=== PATIENT | female | born 1970 | race Caucasian/White ===

== ENCOUNTER 2019-01-21 07:16 | Day surgery (SDC) | payer MEDICAID ==
[~2019-01-21 07:16] MED LIST: Bupivacaine 0.5% 50 ML MDV ONE; Isosulfan Blue 5 ML SDV ONE; Lidocaine 1% with EPINEPHrine 1:100,000 50 ML MDV ONE; Sodium Chloride 0.9% 1,000 ML IV SCH; ceFAZolin 2 GM in Sodium Chloride 0.9% 50 ML IV ONE
[2019-01-21] MEDS ORDERED: fentaNYL 100 MCG/2 ML SDV ONE (07:47)
[2019-01-21] MEDS ORDERED: Midazolam 1 MG/ML 2 ML SDV ONE (07:47)
[2019-01-21] MEDS ORDERED: Propofol 200 MG/20 ML SDV ONE ×3 (07:47→08:52)
[2019-01-21] MEDS ORDERED: ceFAZolin 2 GM in Sodium Chloride 0.9% 50 ML IV ONE (08:45)
[2019-01-21] MEDS ORDERED: Sodium Chloride 0.9% 1,000 ML IV SCH (08:50)
[2019-01-21] MEDS ORDERED: ceFAZolin 2 GM in Premix Bag 1 BAG IV ONE (08:50)
[2019-01-21] MEDS ORDERED: fentaNYL 100 MCG/2 ML SDV IVPUSH ONE (09:23)
--- NOTE | 2019-01-21 10:24 | OR ---
DATE OF PROCEDURE: 01/21/2019 SURGEON: Aki Tello MD PROCEDURE: Excision of right breast carcinoma. COMPLICATION: None. 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 PATHOLOGY: Right breast excision. Single white stitch superior. Double white stitch anterior. Single black stitch medial. Double black stitch inferior. INDICATIONS: A 48-year-old female with positive margins upon lumpectomy requiring re- excision. RISKS: Risks, benefits, alternatives, and limitations including, but not limited to, infection, bleeding, seroma, hematoma, requirement for reexcision for additional margins were explained, patient wished to proceed. PROCEDURE IN DETAIL: The patient was placed in supine position. The previous curvilinear incision was reopened. This was carried down with electrocautery to the cavity. Because the margins were medial and closed on the inferior margin, this would be the center of the excision. Essentially, this is an excision of a curved structure and this was commenced by using PlasmaBlade excising the entire margin. As the specimen was removed, the orientation was kept correctly and the aforementioned stitches were placed as described. This was kept in anatomical orientation and with the idea that this was a curved lesion removal. This was then thoroughly irrigated. Bleeding was controlled with electrocautery. The specimen was left open for 2 minutes and no other bleeding was noted. The wound was then closed with 3-0 Vicryl in 2 layers and 4-0 Vicryl in a running fashion and Dermabond was applied. The patient tolerated the procedure well. Aki Tello MD /[id number]
== END 2019-01-21 10:45 | disposition home or self-care (01) ==
LOC: JP.SDS 07:16
PROVIDERS: ATTEND Surgery
DX: N60.11 Diffuse cystic mastopathy of right breast (principal); F17.210 Nicotine dependence, cigarettes, uncomplicated
CPT/HCPCS: 19301; 36415; 81025; 86850; 86900; 86901; J0690; J2250; J2704; J3010; J3490; J7030; J7050; Q9968

== ENCOUNTER 2019-02-18 07:37 | Day surgery (SDC) | payer MEDICAID ==
[~2019-02-18 07:37] MED LIST changes: -Isosulfan Blue 5 ML SDV ONE; -Sodium Chloride 0.9% 1,000 ML IV SCH; -ceFAZolin 2 GM in Sodium Chloride 0.9% 50 ML IV ONE
[2019-02-18] MEDS ORDERED: Midazolam 1 MG/ML 2 ML SDV ONE (08:21)
[2019-02-18] MEDS ORDERED: Propofol 200 MG/20 ML SDV ONE (08:21)
[2019-02-18] MEDS ORDERED: fentaNYL 100 MCG/2 ML SDV ONE (08:21)
[2019-02-18] MEDS ORDERED: Sodium Chloride 0.9% 1,000 ML IV SCH (08:30)
[2019-02-18] MEDS ORDERED: ceFAZolin 2 GM in Premix Bag 1 BAG IV ONE (09:00)
--- NOTE | 2019-02-18 14:47 | CRLCR ---
INDICATION: Breast carcinoma ;Post insertion of Port-A-Cath. TECHNIQUE: Portable AP chest. FINDINGS: Port-A-Cath identified with the tip in the superior vena cava. No pneumothorax or pleural effusion. IMPRESSION: Port-A-Cath in the superior vena cava. Dictated by Michela Denny MD @ Feb 18 2019 2:44PM Signed by Dr. Michela Denny @ Feb 18 2019 2:45PM
--- NOTE | 2019-02-19 11:50 | OR ---
DATE OF PROCEDURE: 02/18/2019 SURGEON: Aki Tello MD PREOPERATIVE DIAGNOSIS: Breast cancer. POSTOPERATIVE DIAGNOSIS: Breast cancer. PROCEDURE: Port-A-Cath placement, left subclavian vein. COMPLICATIONS: None. 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 ANESTHESIA: MAC/local. RISKS: Risks, benefits, alternatives, and limitations including, but not limited to infection, bleeding, and pneumothorax were explained to the patient, who wished to proceed. PROCEDURE IN DETAIL: The patient was placed in supine position. The left subclavian vein was accessed on the first pass using a micropuncture needle kit. This was then exchanged for the sheath, then exchanged for a 35,000th wire. Under fluoroscopic guidance, this was advanced to and across the midline. The pocket was then created by anesthetizing with lidocaine. Subclavian vein was slightly lateral. This pocket was then created. Tubing was then created. This tubing was then placed in left subclavian vein in the superior vena cava. This was then cut and secured to the reservoir with a black ring properly oriented. The port was then sutured into place using 3 sutures. The wound was then closed with 3-0 Vicryl and 4-0 Vicryl interrupted in running fashion. Dermabond was applied. The patient tolerated the procedure well. Aki Tello MD /[id number]
== END 2019-02-18 10:40 | disposition home or self-care (01) ==
LOC: JP.SDS 07:37
PROVIDERS: ATTEND Surgery
DX: C50.919 Malignant neoplasm of unspecified site of unspecified female breast (principal); K90.0 Celiac disease; J45.909 Unspecified asthma, uncomplicated; F17.200 Nicotine dependence, unspecified, uncomplicated
CPT/HCPCS: 36561; 71045; 81025; C1788; C1894; J0690; J1642; J2250; J2704; J3010; J3490; J7030

== ENCOUNTER 2019-03-12 16:05 | Emergency (ER) | payer MEDICAID ==
[2019-03-12] MEDS ORDERED: Ondansetron 4 MG/2 ML SDV IVPUSH ONE ×2 (17:31→19:14)
[2019-03-12] MEDS ORDERED: HYDROmorphone 0.5 MG/0.5 ML Syringe IVPUSH ONE (17:31)
--- NOTE | 2019-03-12 17:38 | EDM.PDOC ---
<Edelmira Degroot - Last Filed: 03/12/19 17:33> ED HPI GENERAL MEDICAL PROBLEM - General Chief Complaint: Abdominal Pain Stated Complaint: ABDOMINAL/BOWEL PAIN Time Seen by Provider: 03/12/19 17:33 Source of Information: Reports: Patient History Limitations: Reports: No Limitations - History of Present Illness INITIAL COMMENTS - FREE TEXT/NARRATIVE: pt arrived wit a history of profuse diarrhea that started in the nite. She has had over 20 stools since it started. The stool is looking very bloody. Onset: Other ( started in the nite. ) Duration: Hour(s): Location: Reports: Abdomen, Generalized Associated Symptoms: Reports: Nausea/Vomiting, Other ( diarrhea. ) Anterior Abdomen Pain Score (Numeric/FACES): 10 - Related Data Allergies Allergy/AdvReac Type Severity Reaction Status Date / Time atorvastatin Allergy Other Verified 02/18/19 07:49 gabapentin Allergy Other Verified 02/18/19 07:49 pregabalin [From Lyrica] Allergy Swelling Verified 02/18/19 07:49 tramadol Allergy Other Verified 02/18/19 07:49 varenicline Allergy Other Verified 02/18/19 07:49 codeine AdvReac Nausea and Verified 02/18/19 07:49 Vomiting Home Meds: Home Meds Albuterol Sulfate [Albuterol Sulfate Hfa] 2 puff INH Q4H PRN 11/25/18 [History] Ammonium Lactate [Lac-Hydrin 12% Crm] 1 applic TOP BID 11/25/18 [History] Chlorzoxazone 500 mg PO TID PRN 11/25/18 [History] Cyanocobalamin (Vitamin B12) [Vitamin B12] 500 mcg PO BID 11/25/18 [History] Escitalopram Oxalate 10 mg PO DAILY 11/25/18 [History] Fluticasone Propionate [Flonase] 2 spray NASBOTH DAILY 11/25/18 [History] Steffanie Root [Steffanie] 250 mg PO TID 11/25/18 [History] Ibuprofen 800 mg PO TID 11/25/18 [History] Lactobacillus Acidophilus [Probiotic] 1 tab PO DAILY 11/25/18 [History] Levothyroxine 200 mcg PO DAILY 11/25/18 [History] Magnesium Oxide 400 mg PO DAILY 11/25/18 [History] [place]-3/DHA/Epa/Fish Oil [[place] 3 500 Softgel] 1 tab PO DAILY 11/25/18 [History] Rizatriptan [Maxalt VALET ATTENDANT] 5 mg PO ASDIRECTED 11/25/18 [History] oxyCODONE [Oxycodone HCl] 10 mg PO .FIVE TIMES DAILY 11/25/18 [History] QUEtiapine [SEROquel] 50 mg PO BEDTIME 12/19/18 [History] cloNIDine HCl [Catapres] 0.1 mg PO DAILY 12/19/18 [History] Cbd Vape 1 inh INH TID PRN 01/21/19 [History] Cetirizine HCl 10 mg PO DAILY 02/17/19 [History] Lidocaine/Prilocaine [EMLA Crm] 1 applic TOP ASDIRECTED PRN 02/17/19 [History] Prochlorperazine [Compazine] 10 mg PO Q6H PRN 02/17/19 [History] Past Medical History HEENT History: Reports: Allergic Rhinitis, Glaucoma, Impaired Vision Other HEENT History: wears glasses Respiratory History: Reports: Asthma Gastrointestinal History: Reports: Celiac Disease Genitourinary History: Reports: Other (See Below) Other Genitourinary History: prolapse bladder 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: Musculoskeletal History: Reports: Arthritis, Back Pain, Chronic, Fibromyalgia Neurological History: Reports: Migraines, Neuropathy, Peripheral Psychiatric History: Reports: Anxiety, Depression, Panic Attack Endocrine/Metabolic History: Reports: Hypothyroidism Oncologic (Cancer) History: Reports: Breast Dermatologic History: Reports: Psoriasis - Infectious Disease History Infectious Disease History: Reports: Chicken Pox - Past Surgical History HEENT Surgical History: Reports: Oral Surgery Respiratory Surgical History: Reports: None GI Surgical History: Reports: EGD Female Surgical History: Reports: Breast Biopsy, Other (See Below) Other Female Surgeries/Procedures: right breast lumpectomy Endocrine Surgical History: Reports: None Neurological Surgical History: Reports: Sacral Spine Musculoskeletal Surgical History: Reports: None Oncologic Surgical History: Reports: Lumpectomy Dermatological Surgical History: Reports: None Social & Family History - Family History Family Medical History: Noncontributory Respiratory: Reports: Other (See Below) Other Respiratory Family Hisory: lung polyps? Musculoskeletal: Reports: Back pain, Chronic Neurological: Reports: CVA, Migraines Psychiatric: Reports: Anxiety, OCD - Tobacco Use Smoking Status *Q: Former Smoker Used Tobacco, but Quit: Yes Month/Year Tobacco Last Used: 2019 - Caffeine Use Caffeine Use: Reports: Coffee Caffeine Use Comment: 10 cups, monster x1 - Recreational Drug Use Recreational Drug Use: No ED ROS GENERAL - Review of Systems Review Of Systems: See Below Constitutional: Reports: Weakness, Decreased Appetite HEENT: Reports: No Symptoms Respiratory: Reports: No Symptoms Cardiovascular: Reports: No Symptoms Endocrine: Reports: No Symptoms GI/Abdominal: Reports: Abdominal Pain, Bloody Stool, Diarrhea, Nausea, Vomiting : Reports: No Symptoms Musculoskeletal: Reports: No Symptoms Skin: Reports: No Symptoms Neurological: Reports: No Symptoms Psychiatric: Reports: Agitation ED EXAM, GI/ABD - Physical Exam Exam: See Below Text/Narrative:: pt arrived with a history of breast CA. 1 week ago she received her first round of chemo, She was doing ok until in the nuite she developed profuse diarrhea. She has had over 20 loose stools. The stool that she just had was vey bloody in nature. Exam Limited By: No Limitations General Appearance: Alert, Anxious, Moderate Distress, Other ( she is having diffuse crampy of her abdoman. ) Ears: Normal TMs Nose: Normal Inspection Throat/Mouth: Normal Inspection Head: Atraumatic Neck: Normal Inspection Respiratory/Chest: No Respiratory Distress Cardiovascular: Regular Rate, Rhythm, Tachycardia GI/Abdominal Exam: Other (pt has diffuse tenders. Pt has had a recent lumpectomy / ) (Female) Exam: Deferred Rectal (Female) Exam: Deferred Back Exam: Normal Inspection Extremities: Normal Inspection Neurological: Alert, Oriented, Normal Cognition Course - Vital Signs Last Recorded V/S: Last Vital Signs Temp 96.7 F 03/12/19 16:47 Pulse 93 03/12/19 18:03 Resp 12 03/12/19 18:03 BP 111/67 03/12/19 18:03 Pulse Ox 94 L 03/12/19 18:03 - Orders/Labs/Meds Orders: Active Orders 24 hr Category Date Time Status CULTURE STOOL + SHIGATOX [RM] Stat Lab 03/12/19 17:35 Received UA W/MICROSCOPIC [URIN] Urgent Lab 03/12/19 19:04 Ordered Sodium Chloride 0.9% [Normal Saline] 1,000 ml Med 03/12/19 17:45 Active IV ASDIRECTED Sodium Chloride 0.9% [Normal Saline] 1,000 ml Med 03/12/19 17:45 Active IV ASDIRECTED Medication Orders Sodium Chloride (Normal Saline) 1,000 mls @ 999 mls/hr IV ASDIRECTED KEIRA Last Admin: 03/12/19 17:59 Dose: 999 mls/hr Sodium Chloride (Normal Saline) 1,000 mls @ 999 mls/hr IV ASDIRECTED KEIRA Labs: Laboratory Tests 03/12/19 03/12/19 Range/Units 17:27 17:27 WBC 7.1 (4.5-11.0) K/uL RBC 5.05 (3.30-5.50) M/uL Hgb 15.5 H (12.0-15.0) g/dL Hct 45.2 (36.0-48.0) % MCV 90 (80-98) fL MCH 31 (27-31) pg MCHC 34 (32-36) % Plt Count 78 L (150-400) K/uL Add Manual Diff Yes Neutrophils % (Manual) 82 H (36-66) % Band Neutrophils % 5 (5-11) % Lymphocytes % (Manual) 9 L (24-44) % Monocytes % (Manual) 2 (2-6) % Eosinophils % (Manual) 2 (2-4) % Sodium 134 L (140-148) mmol/L Potassium 3.5 L (3.6-5.2) mmol/L Chloride 95 L (100-108) mmol/L Carbon Dioxide 24 (21-32) mmol/L Anion Gap 18.5 H (5.0-14.0) mmol/L BUN 29 H (7-18) mg/dL Creatinine 0.8 (0.6-1.0) mg/dL Est Cr Clr Drug Dosing 86.75 mL/min Estimated GFR (MDRD) > 60 (>60) Glucose 116 H (74-106) mg/dL Calcium 9.0 (8.5-10.1) mg/dL Total Bilirubin 1.0 (0.2-1.0) mg/dL AST 11 L (15-37) U/L ALT 23 (12-78) U/L Alkaline Phosphatase 112 (46-116) U/L Total Protein 7.0 (6.4-8.2) g/dL Albumin 3.6 (3.4-5.0) g/dL Globulin 3.4 (2.3-3.5) g/dL Albumin/Globulin Ratio 1.1 L (1.2-2.2) Meds: Medications Generic Name Dose Route Start Last Admin Trade Name Freq PRN Reason Stop Dose Admin Sodium Chloride 1,000 mls @ 999 mls/hr 03/12/19 17:45 03/12/19 17:59 Normal Saline IV 999 mls/hr ASDIRECTED KEIRA Administration Sodium Chloride 1,000 mls @ 999 mls/hr 03/12/19 17:45 Normal Saline IV ASDIRECTED KEIRA Discontinued Medications Generic Name Dose Route Start Last Admin Trade Name Freq PRN Reason Stop Dose Admin Hydromorphone HCl 0.5 mg 03/12/19 17:31 03/12/19 17:53 Dilaudid IVPUSH 03/12/19 17:32 0.5 mg ONETIME ONE Administration Ondansetron HCl 4 mg 03/12/19 17:31 03/12/19 17:56 Zofran IVPUSH 03/12/19 17:32 4 mg ONETIME ONE Administration Departure - Departure Disposition: Home, Self-Care 01 Clinical Impression: Diarrhea Qualifiers: Diarrhea type: unspecified type Qualified Code(s): R19.7 - Diarrhea, unspecified - Discharge Information Instructions: Diarrhea, Adult Referrals: PCP,None [Primary Care Provider] - Forms: ED Department Discharge Additional Instructions: Continue to push fluids, use your Zofran as needed, use your pain medication as needed please contact your oncologist office in the morning, call or return to the emergency department worsening of symptoms Sepsis Event Note - Evaluation Sepsis Screening Result: No Definite Risk - Focused Exam Vital Signs: Vital Signs Temp Pulse Resp BP Pulse Ox 03/12/19 18:03 93 12 111/67 94 L 03/12/19 16:47 96.7 F 124 H 18 115/92 H 96 03/12/19 16:18 96.7 F 124 H 18 115/92 H 96 Date Exam was Performed: 03/12/19 Time Exam was Performed: 17:33 <ErnestorBenedict - Last Filed: 03/12/19 19:11> Departure - Departure Time of Disposition: 19:10 Condition: Poor Sepsis Event Note - Focused Exam Date Exam was Performed: 03/12/19 Time Exam was Performed: 19:08 - Assessment/Plan Plan: Took over care from Dr. Degroot at 1900 Assessment Acuity = acute Site and laterality = severe diarrhea complicating the patient with history of breast cancer status post initial chemotherapy treatment post 5 days ago Etiology = unknown Manifestations = abdominal pain Location of injury = Home Lab values = CBC unremarkable, sodium low at 134 consistent hyponatremia potassium low at 3.5 consistent hypokalemia C. difficile was negative Plan I did review lab work results with her she felt better with the liter of fluids , plan is to go home she has pain medication and antiemetics at home she will contact her oncologist in the morning informed her of the C. difficile result she will continue to push fluids This note was dictated using [employer] voice recognition software please call with any questions on syntax or grammar.
[2019-03-12] MEDS ORDERED: Sodium Chloride 0.9% 1,000 ML IV SCH ×2 (17:45)
[2019-03-12] MEDS ORDERED: HYDROmorphone 1 MG/ML Syringe IVPUSH ONE (19:28)
== END 2019-03-12 20:00 | disposition home or self-care (01) ==
LOC: JP.ED 16:05
DX: R19.7 Diarrhea, unspecified (principal); J45.909 Unspecified asthma, uncomplicated; F32.9 Major depressive disorder, single episode, unspecified; E03.9 Hypothyroidism, unspecified; F41.9 Anxiety disorder, unspecified; Z88.8 Allergy status to other drugs, medicaments and biological substances; Z88.5 Allergy status to narcotic agent; Z79.51 Long term (current) use of inhaled steroids; Z79.899 Other long term (current) drug therapy; Z79.890 Hormone replacement therapy; Z87.891 Personal history of nicotine dependence
CPT/HCPCS: 36415; 80053; 81001; 85025; 87046; 87493; 87899; 96361; 96374; 96375; 96376; 99284; J1170; J2405; J7030; 99283

== ENCOUNTER 2019-04-28 16:24 | Emergency (ER) | payer MEDICAID ==
--- NOTE | 2019-04-28 16:53 | EDM.PDOC ---
ED HPI GENERAL MEDICAL PROBLEM - General Chief Complaint: Lower Extremity Injury/Pain Stated Complaint: RIGHT LEG SWELLING Time Seen by Provider: 04/28/19 16:45 Source of Information: Reports: Patient, Family History Limitations: Reports: No Limitations - History of Present Illness INITIAL COMMENTS - FREE TEXT/NARRATIVE: 48-year-old female, undergoing treatment for breast cancer was seen in the clinic earlier today for respiratory symptoms and started on antibiotic. However shortly after noon she started developing pain and swelling in her right leg, and now has puffiness and edema through the right leg to her foot and some generalized aching and tenderness. She called the clinic and they sent her to the emergency room. No fevers or chills. No trauma she knows of. Onset: Sudden (Symptoms started fairly suddenly about 4 to 5 hours ago) Location: Reports: Lower Extremity, Right Quality: Reports: Ache Associated Symptoms: Reports: Other (Seen earlier today for cold symptoms) Right Ankle Pain Score (Numeric/FACES): 7 - Related Data Allergies Allergy/AdvReac Type Severity Reaction Status Date / Time atorvastatin Allergy Other Verified 04/29/19 18:33 gabapentin Allergy Other Verified 04/29/19 18:33 pregabalin [From Lyrica] Allergy Swelling Verified 04/29/19 18:33 tramadol Allergy Other Verified 04/29/19 18:33 varenicline Allergy Other Verified 04/29/19 18:33 codeine AdvReac Nausea and Verified 04/29/19 18:33 Vomiting Home Meds: Home Meds Albuterol Sulfate [Albuterol Sulfate Hfa] 2 puff INH Q4H PRN 11/25/18 [History] Ammonium Lactate [Lac-Hydrin 12% Crm] 1 applic TOP BID 11/25/18 [History] Chlorzoxazone 500 mg PO TID PRN 11/25/18 [History] Cyanocobalamin (Vitamin B12) [Vitamin B12] 500 mcg PO BID 11/25/18 [History] Escitalopram Oxalate 10 mg PO DAILY 11/25/18 [History] Fluticasone Propionate [Flonase] 2 spray NASBOTH DAILY 11/25/18 [History] Steffanie Root [Steffanie] 250 mg PO TID 11/25/18 [History] Ibuprofen 800 mg PO TID 11/25/18 [History] Lactobacillus Acidophilus [Probiotic] 1 tab PO DAILY 11/25/18 [History] Levothyroxine 200 mcg PO DAILY 11/25/18 [History] Magnesium Oxide 400 mg PO DAILY 11/25/18 [History] [place]-3/DHA/Epa/Fish Oil [[place] 3 500 Softgel] 1 tab PO DAILY 11/25/18 [History] Rizatriptan [Maxalt BLOCK SORTER] 5 mg PO ASDIRECTED 11/25/18 [History] oxyCODONE [Oxycodone HCl] 10 mg PO .FIVE TIMES DAILY 11/25/18 [History] QUEtiapine [SEROquel] 50 mg PO BEDTIME 12/19/18 [History] cloNIDine HCl [Catapres] 0.1 mg PO DAILY 12/19/18 [History] Cbd Vape 1 inh INH TID PRN 01/21/19 [History] Cetirizine HCl 10 mg PO DAILY 02/17/19 [History] Lidocaine/Prilocaine [EMLA Crm] 1 applic TOP ASDIRECTED PRN 02/17/19 [History] Prochlorperazine [Compazine] 10 mg PO Q6H PRN 02/17/19 [History] Amoxicillin/Clavulanate K [Augmentin 875-125 MG] 1 tab PO 04/29/19 [History] Omeprazole 40 mg PO DAILY 04/29/19 [History] Potassium Chloride 10 meq PO DAILY 04/29/19 [History] cloNIDine [Catapres-TTS 1] 1 each TD DAILY 04/29/19 [History] guaiFENesin [Robafen] 1 dose PO Q4HR PRN 04/29/19 [History] Past Medical History HEENT History: Reports: Allergic Rhinitis, Glaucoma, Impaired Vision Other HEENT History: wears glasses Respiratory History: Reports: Asthma Gastrointestinal History: Reports: Celiac Disease Genitourinary History: Reports: Other (See Below) Other Genitourinary History: prolapse bladder 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: Musculoskeletal History: Reports: Arthritis, Back Pain, Chronic, Fibromyalgia Neurological History: Reports: Migraines, Neuropathy, Peripheral Psychiatric History: Reports: Anxiety, Depression, Panic Attack Endocrine/Metabolic History: Reports: Hypothyroidism Oncologic (Cancer) History: Reports: Breast Dermatologic History: Reports: Psoriasis - Infectious Disease History Infectious Disease History: Reports: C-Difficile - Past Surgical History HEENT Surgical History: Reports: Oral Surgery Respiratory Surgical History: Reports: None GI Surgical History: Reports: EGD Female Surgical History: Reports: Breast Biopsy, Other (See Below) Other Female Surgeries/Procedures: right breast lumpectomy Endocrine Surgical History: Reports: None Neurological Surgical History: Reports: Sacral Spine Musculoskeletal Surgical History: Reports: None Oncologic Surgical History: Reports: Lumpectomy Dermatological Surgical History: Reports: None Social & Family History - Family History Family Medical History: Noncontributory Respiratory: Reports: Other (See Below) Other Respiratory Family Hisory: lung polyps? Musculoskeletal: Reports: Back pain, Chronic Neurological: Reports: CVA, Migraines Psychiatric: Reports: Anxiety, OCD - Tobacco Use Smoking Status *Q: Current Every Day Smoker Years of Tobacco use: 30 Packs/Tins Daily: 1 - Caffeine Use Caffeine Use: Reports: Coffee, Energy Drinks Caffeine Use Comment: 10 cups, monster x1 - Recreational Drug Use Recreational Drug Type: Reports: Marijuana/Hashish Review of Systems - Review of Systems Review Of Systems: See Below Constitutional: Denies: Fever Respiratory: Reports: Cough GI/Abdominal: Denies: Nausea, Vomiting Skin: Reports: Bruising (Tends to bruise easily) Neurological: Reports: Other (Has peripheral neuropathy of the lower extremities ). Denies: Headache ED EXAM, GENERAL - Physical Exam Exam: See Below Exam Limited By: No Limitations General Appearance: Alert, No Apparent Distress Head: Atraumatic Respiratory/Chest: No Respiratory Distress Cardiovascular: Regular Rate, Rhythm Extremities: Other (Exam is otherwise limited to the lower extremities. She has no edema of the left leg, the right is puffy to the top of the foot, the ankle, with some tenderness to palpation of the posterior right leg through the calf and knee) Course - Vital Signs Last Recorded V/S: Last Vital Signs Temp 95.4 F L 04/28/19 16:41 Pulse 93 04/28/19 16:41 Resp 18 04/28/19 16:41 BP 114/70 04/28/19 16:41 Pulse Ox 96 04/28/19 16:41 - Re-Assessments/Exams Free Text/Narrative Re-Assessment/Exam: 04/28/19 16:52 With this patient's history of breast cancer and treatment, an ultrasound of the right leg is necessary. They were called in for the procedure. 03/23/20 17:36 Ultrasound of the right leg was negative so a right ankle x-ray was obtained. 04/28/19 17:49 Right ankle shows no evidence of bony lesions, fracture or significant arthritis. Patient was given two 6 inch Damon wraps to apply to the leg for pressure, encouraged her to elevate and increase activity as tolerated. She can recheck in 2 to 3 days if not improving satisfactorily. Departure - Departure Time of Disposition: 17:51 Disposition: Home, Self-Care 01 Clinical Impression: Leg edema, right - Discharge Information Instructions: Edema Referrals: Mickie Carmona PA-C [Primary Care Provider] - Forms: ED Department Discharge Care Plan Goals: Wrap swollen areas of leg for comfort and pressure to reduce swelling along with elevation of the leg. Increase activity as tolerated, and consider rechecking in 2 to 3 days if not improving. Sepsis Event Note - Evaluation Sepsis Screening Result: No Definite Risk - Focused Exam Date Exam was Performed: 04/30/19 Time Exam was Performed: 07:23
--- NOTE | 2019-04-29 09:12 | US ---
VL Duplex Lwr Ext Veins Ltd Rt INDICATION: swelling, dvt check FINDINGS: Ultrasound examination of the lower extremity using Doppler and compressive technique demonstrates that the common femoral, femoral, and popliteal veins are patent, and negative for thrombus. The calf veins were segmentally visualized and are negative where seen. IMPRESSION: Negative for right lower extremity deep venous thrombosis.
--- NOTE | 2019-04-29 09:13 | CR ---
Ankle Min 3V Rt CLINICAL HISTORY: Swelling FINDINGS: The soft tissues are prominent. No acute fracture or dislocation is noted. Ankle mortise is intact. Articular surfaces are smooth. Impression: Generalized soft tissue swelling No osseous lesion
== END 2019-04-28 17:58 | disposition home or self-care (01) ==
LOC: JP.ED 16:24
DX: R60.0 Localized edema (principal); J45.909 Unspecified asthma, uncomplicated; M19.90 Unspecified osteoarthritis, unspecified site; G62.9 Polyneuropathy, unspecified; E03.9 Hypothyroidism, unspecified; F17.210 Nicotine dependence, cigarettes, uncomplicated; F41.9 Anxiety disorder, unspecified; F32.9 Major depressive disorder, single episode, unspecified; Z88.5 Allergy status to narcotic agent; Z88.8 Allergy status to other drugs, medicaments and biological substances; Z79.899 Other long term (current) drug therapy; G43.909 Migraine, unspecified, not intractable, without status migrainosus
CPT/HCPCS: 73610-26-RT; 73610-RT; 93971-26; 93971-RT; 99284-25

== ENCOUNTER 2019-04-29 18:07 | Emergency (ER) | payer MEDICAID ==
--- NOTE | 2019-04-29 19:25 | EDM.PDOC ---
ED HPI GENERAL MEDICAL PROBLEM - General Chief Complaint: General Stated Complaint: UPPER RESPIRATORY CONGESTION Time Seen by Provider: 04/29/19 18:55 Source of Information: Reports: Patient History Limitations: Reports: No Limitations - History of Present Illness INITIAL COMMENTS - FREE TEXT/NARRATIVE: This is a 48-year-old with a history of breast cancer who presents to the emergency department with concerns that she may need testing for COVID-19. She reports that she has breast cancer, noted some lower extremity edema which she was seen for in the ED yesterday. She feels like all of the symptoms may be due to COVID infection. She has a mild cough. She has no dyspnea. She has no chest pain. She has no history of heart disease. She had a DVT ultrasound and plain films of the right lower extremity done yesterday which were unremarkable. Bilateral Leg Pain Score (Numeric/FACES): 5 - Related Data Allergies Allergy/AdvReac Type Severity Reaction Status Date / Time atorvastatin Allergy Other Verified 04/29/19 18:33 gabapentin Allergy Other Verified 04/29/19 18:33 pregabalin [From Lyrica] Allergy Swelling Verified 04/29/19 18:33 tramadol Allergy Other Verified 04/29/19 18:33 varenicline Allergy Other Verified 04/29/19 18:33 codeine AdvReac Nausea and Verified 04/29/19 18:33 Vomiting Home Meds: Home Meds Albuterol Sulfate [Albuterol Sulfate Hfa] 2 puff INH Q4H PRN 11/25/18 [History] Ammonium Lactate [Lac-Hydrin 12% Crm] 1 applic TOP BID 11/25/18 [History] Chlorzoxazone 500 mg PO TID PRN 11/25/18 [History] Cyanocobalamin (Vitamin B12) [Vitamin B12] 500 mcg PO BID 11/25/18 [History] Escitalopram Oxalate 10 mg PO DAILY 11/25/18 [History] Fluticasone Propionate [Flonase] 2 spray NASBOTH DAILY 11/25/18 [History] Steffanie Root [Steffanie] 250 mg PO TID 11/25/18 [History] Ibuprofen 800 mg PO TID 11/25/18 [History] Lactobacillus Acidophilus [Probiotic] 1 tab PO DAILY 11/25/18 [History] Levothyroxine 200 mcg PO DAILY 11/25/18 [History] Magnesium Oxide 400 mg PO DAILY 11/25/18 [History] [place]-3/DHA/Epa/Fish Oil [[place] 3 500 Softgel] 1 tab PO DAILY 11/25/18 [History] Rizatriptan [Maxalt MANAGER IN TRAINING] 5 mg PO ASDIRECTED 11/25/18 [History] oxyCODONE [Oxycodone HCl] 10 mg PO .FIVE TIMES DAILY 11/25/18 [History] QUEtiapine [SEROquel] 50 mg PO BEDTIME 12/19/18 [History] cloNIDine HCl [Catapres] 0.1 mg PO DAILY 12/19/18 [History] Cbd Vape 1 inh INH TID PRN 01/21/19 [History] Cetirizine HCl 10 mg PO DAILY 02/17/19 [History] Lidocaine/Prilocaine [EMLA Crm] 1 applic TOP ASDIRECTED PRN 02/17/19 [History] Prochlorperazine [Compazine] 10 mg PO Q6H PRN 02/17/19 [History] Amoxicillin/Clavulanate K [Augmentin 875-125 MG] 1 tab PO 04/29/19 [History] Omeprazole 40 mg PO DAILY 04/29/19 [History] Potassium Chloride 10 meq PO DAILY 04/29/19 [History] cloNIDine [Catapres-TTS 1] 1 each TD DAILY 04/29/19 [History] guaiFENesin [Robafen] 1 dose PO Q4HR PRN 04/29/19 [History] Past Medical History HEENT History: Reports: Allergic Rhinitis, Glaucoma, Impaired Vision Other HEENT History: wears glasses Respiratory History: Reports: Asthma Gastrointestinal History: Reports: Celiac Disease Genitourinary History: Reports: Other (See Below) Other Genitourinary History: prolapse bladder 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: Musculoskeletal History: Reports: Arthritis, Back Pain, Chronic, Fibromyalgia Neurological History: Reports: Migraines, Neuropathy, Peripheral Psychiatric History: Reports: Anxiety, Depression, Panic Attack Endocrine/Metabolic History: Reports: Hypothyroidism Oncologic (Cancer) History: Reports: Breast Dermatologic History: Reports: Psoriasis - Infectious Disease History Infectious Disease History: Reports: C-Difficile - Past Surgical History HEENT Surgical History: Reports: Oral Surgery Respiratory Surgical History: Reports: None GI Surgical History: Reports: EGD Female Surgical History: Reports: Breast Biopsy, Other (See Below) Other Female Surgeries/Procedures: right breast lumpectomy Endocrine Surgical History: Reports: None Neurological Surgical History: Reports: Sacral Spine Musculoskeletal Surgical History: Reports: None Oncologic Surgical History: Reports: Lumpectomy Dermatological Surgical History: Reports: None Social & Family History - Family History Family Medical History: Noncontributory Respiratory: Reports: Other (See Below) Other Respiratory Family Hisory: lung polyps? Musculoskeletal: Reports: Back pain, Chronic Neurological: Reports: CVA, Migraines Psychiatric: Reports: Anxiety, OCD - Tobacco Use Smoking Status *Q: Current Every Day Smoker Years of Tobacco use: 30 Packs/Tins Daily: 1 - Caffeine Use Caffeine Use: Reports: Coffee, Energy Drinks Caffeine Use Comment: 10 cups, monster x1 - Recreational Drug Use Recreational Drug Type: Reports: Marijuana/Hashish ED ROS GENERAL - Review of Systems Review Of Systems: See Below Constitutional: Reports: No Symptoms HEENT: Reports: No Symptoms Respiratory: Reports: Cough Cardiovascular: Reports: Edema Endocrine: Reports: No Symptoms GI/Abdominal: Reports: No Symptoms : Reports: No Symptoms Musculoskeletal: Reports: No Symptoms Skin: Reports: No Symptoms Neurological: Reports: No Symptoms Psychiatric: Reports: No Symptoms Hematologic/Lymphatic: Reports: No Symptoms Immunologic: Reports: No Symptoms ED EXAM, GENERAL - Physical Exam Exam: See Below Exam Limited By: No Limitations General Appearance: Alert, No Apparent Distress Ears: Normal External Exam Nose: Normal Inspection Throat/Mouth: Normal Inspection Head: Atraumatic, Normocephalic Respiratory/Chest: No Respiratory Distress, Lungs Clear Cardiovascular: Regular Rate, Rhythm GI/Abdominal: No Distention Back Exam: Normal Inspection Extremities: Pedal Edema Neurological: Alert, Oriented Psychiatric: Normal Affect, Normal Mood Skin Exam: Warm, Dry Course - Vital Signs Last Recorded V/S: Last Vital Signs Temp 35.9 C L 04/29/19 18:34 Pulse 87 04/29/19 18:34 Resp 16 04/29/19 18:34 BP 144/91 H 04/29/19 18:34 Pulse Ox 98 04/29/19 18:34 - Re-Assessments/Exams Free Text/Narrative Re-Assessment/Exam: This is a 48-year-old female presenting with concern that she may have COVID-19 She has normal vital signs. She has not experienced any significant dyspnea. She does not meet criteria for testing. I did perform a bedside basic echocardiogram, this showed grossly preserved ejection fraction. Pulmonary ultrasound was also performed. Fluids with that showed some scattered subpleural B-lines which for her are nonspecific but of course may be associated with a viral lung infection. I have asked her to follow-up with her primary doctor as planned for her lower extremity edema, may consider formal echocardiogram at this time. They were counseled to return to the emergency department for any significant dyspnea, also counseled to remain in isolation due to cough symptoms. 04/29/19 19:36 Departure - Departure Time of Disposition: 19:15 Disposition: Home, Self-Care 01 Clinical Impression: Cough - Discharge Information Instructions: Cough, Adult, [id number] Referrals: Mickie Carmona PA-C [Primary Care Provider] - Forms: ED Department Discharge Additional Instructions: Please follow up with you primary doctor for you leg swelling early next week as discussed at your visit yesterday. Return to the ER for worsening shortness of breath as discussed Sepsis Event Note - Evaluation Sepsis Screening Result: No Definite Risk - Focused Exam Vital Signs: Vital Signs Temp Pulse Resp BP Pulse Ox 04/29/19 18:34 35.9 C L 87 16 144/91 H 98 04/29/19 18:30 35.9 C L 87 16 144/91 H 98 Date Exam was Performed: 04/29/19 Time Exam was Performed: 19:32
== END 2019-04-29 19:35 | disposition home or self-care (01) ==
LOC: JP.ED 18:07
DX: R05 Cough (principal); J45.909 Unspecified asthma, uncomplicated; E03.9 Hypothyroidism, unspecified; F41.9 Anxiety disorder, unspecified; F32.9 Major depressive disorder, single episode, unspecified; F17.210 Nicotine dependence, cigarettes, uncomplicated; Z88.8 Allergy status to other drugs, medicaments and biological substances; Z88.5 Allergy status to narcotic agent; Z88.1 Allergy status to other antibiotic agents; Z79.899 Other long term (current) drug therapy; Z85.3 Personal history of malignant neoplasm of breast
CPT/HCPCS: 99283

== ENCOUNTER 2019-06-27 07:19 | Day surgery (SDC) | payer MEDICAID ==
[2019-06-27] MEDS ORDERED: fentaNYL 100 MCG/2 ML SDV ONE (07:44)
[2019-06-27] MEDS ORDERED: Midazolam 1 MG/ML 2 ML SDV ONE (07:44)
[2019-06-27] MEDS ORDERED: Propofol 200 MG/20 ML SDV ONE (07:44)
[2019-06-27] MEDS ORDERED: Sodium Chloride 0.9% 1,000 ML IV SCH (08:00)
--- NOTE | 2019-07-01 09:25 | OR ---
DATE OF PROCEDURE: 06/27/2019 SURGEON: Aki Tello MD PROCEDURES: 1. Esophagogastroduodenoscopy. 2. Colonoscopy. FINDINGS: 1. No gross abnormalities. 2. Very poor colon prep. COMPLICATIONS: None. HORSE RACING ANALYST: None. PREOPERATIVE DIAGNOSIS: EGD and colonoscopy due to history of celiac sprue and requirement for continuation of chemotherapy. POSTOPERATIVE DIAGNOSIS: EGD and colonoscopy due to history of celiac sprue and requirement for continuation of chemotherapy. RISKS: Risks, benefits, alternatives, and limitations including, but not limited to infection, bleeding, and perforation were explained to the patient, and they wished to proceed. PROCEDURE IN DETAIL: The patient was placed in left lateral decubitus position. The EGD scope was introduced and advanced atraumatically to the second part of the duodenum. The patient did have very mild early gastritis. No evidence of ulceration. No abnormalities on retroflexion. GE junction was also normal. Esophagus was normal. Digital rectal exam was performed next. The scope was introduced and advanced to approximately the transverse colon area. However, the prep was incredibly poor with almost no luminal surface could be seen and very solid stools. The scope was then removed. No abnormalities noted; however, this was a marginal test due to the poor colon prep. Postoperatively, the patient and I discussed her objective, which was having these procedures performed to continue chemotherapy; however, she has moved past this and now is on radiation therapy as well. We did discuss repeat colonoscopy, which she has gently and politely declined. We discussed risks, benefits, alternatives, and limitations of this including the possibility of missing a colorectal cancer and recommended that, if she defers at this time, she should have this repeated at approximately age 50 or whatever the current standard is. Aki Tello MD /[id number]
== END 2019-06-27 10:00 | disposition home or self-care (01) ==
LOC: JP.SDS 07:19
PROVIDERS: ATTEND Surgery
DX: K90.0 Celiac disease (principal); J45.909 Unspecified asthma, uncomplicated; F41.9 Anxiety disorder, unspecified; F32.9 Major depressive disorder, single episode, unspecified
CPT/HCPCS: 43235; 45378; J1642; J2250; J2704; J3010; J7030

== ENCOUNTER 2020-12-17 08:08 | Emergency (ER) | payer MEDICAID ==
--- NOTE | 2020-12-17 09:02 | EDM.PDOC ---
ED HPI GENERAL MEDICAL PROBLEM - General Chief Complaint: Back Pain or Injury Stated Complaint: SPINE ISSUES/DIFF. WALKING Time Seen by Provider: 12/17/20 08:40 Source of Information: Reports: Patient, Old Records, RN History Limitations: Reports: No Limitations - History of Present Illness INITIAL COMMENTS - FREE TEXT/NARRATIVE: 50 yo female presents with an abrupt increase in her pain and with loss of L leg function starting this past Wed AM. She is followed by a pain clinic in [place] and had an MRI on her lumbar spine in 09/25 that showed L post lateral disc protrusion at L2-3 encroaching on the exiting left L2 nerve root and stable L2-4 disc protrusion. She has not spoken with anyone about her worsening sx's until she showed up here in the ER today. No bowel, bladder incontinence. When she moves or strains her pain down her L leg is worse. Both feet are chronically numb from neuropathy. Is on both MS Contin and oxycodone. Can't tolerate gabapentin or Lyrica. Left Back Pain Score (Numeric/FACES): 10 - Related Data Allergies Allergy/AdvReac Type Severity Reaction Status Date / Time atorvastatin Allergy Other Verified 12/17/20 08:30 gabapentin Allergy Other Verified 12/17/20 08:30 pregabalin [From Lyrica] Allergy Swelling Verified 12/17/20 08:30 tramadol Allergy Other Verified 12/17/20 08:30 varenicline Allergy Other Verified 12/17/20 08:30 codeine AdvReac Nausea and Verified 12/17/20 08:30 Vomiting Home Meds: Home Meds Albuterol Sulfate [Albuterol Sulfate Hfa] 2 puff INH Q4H PRN 11/25/18 [History] Fluticasone Propionate [Flonase] 1 spray NASBOTH DAILY 11/25/18 [History] Levothyroxine 150 mcg PO DAILY 11/25/18 [History] [place]-3/DHA/Epa/Fish Oil [[place] 3 500 Softgel] 1 tab PO DAILY 11/25/18 [History] Rizatriptan [Maxalt RES COUNSELOR] 5 mg PO ASDIRECTED 11/25/18 [History] oxyCODONE [Oxycodone HCl] 10 mg PO .6TIMES PER DAY 11/25/18 [History] Cbd Vape 1 inh INH TID PRN 01/21/19 [History] Lidocaine/Prilocaine [EMLA Crm] 1 applic TOP ASDIRECTED PRN 02/17/19 [History] Ondansetron [Zofran] 8 mg PO Q8H PRN 06/26/19 [History] Ranitidine HCl [Ranitidine] 150 mg PO BID 06/26/19 [History] Past Medical History HEENT History: Reports: Allergic Rhinitis, Glaucoma, Impaired Vision Other HEENT History: wears glasses Respiratory History: Reports: Asthma Gastrointestinal History: Reports: Celiac Disease Genitourinary History: Reports: Other (See Below) Other Genitourinary History: prolapse bladder 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: Musculoskeletal History: Reports: Arthritis, Back Pain, Chronic, Fibromyalgia Neurological History: Reports: Migraines, Neuropathy, Peripheral Psychiatric History: Reports: Anxiety, Depression, Panic Attack Endocrine/Metabolic History: Reports: Hypothyroidism Oncologic (Cancer) History: Reports: Breast Dermatologic History: Reports: Psoriasis - Infectious Disease History Infectious Disease History: Reports: Chicken Pox - Past Surgical History HEENT Surgical History: Reports: Oral Surgery Respiratory Surgical History: Reports: None GI Surgical History: Reports: EGD Female Surgical History: Reports: Breast Biopsy, Other (See Below) Other Female Surgeries/Procedures: right breast lumpectomy Endocrine Surgical History: Reports: None Neurological Surgical History: Reports: Sacral Spine Musculoskeletal Surgical History: Reports: None Oncologic Surgical History: Reports: Lumpectomy Dermatological Surgical History: Reports: None Social & Family History - Family History Family Medical History: No Pertinent Family History Respiratory: Reports: Other (See Below) Other Respiratory Family Hisory: lung polyps? Musculoskeletal: Reports: Back pain, Chronic Neurological: Reports: CVA, Migraines Psychiatric: Reports: Anxiety, OCD - Tobacco Use Tobacco Use Status *Q: Heavy Tobacco User Years of Tobacco use: 35 Packs/Tins Daily: 1.5 - Caffeine Use Caffeine Use: Reports: Coffee Caffeine Use Comment: 10 cups, monster x1 - Recreational Drug Use Recreational Drug Use: No ED ROS GENERAL - Review of Systems Review Of Systems: See Below Constitutional: Reports: No Symptoms HEENT: Reports: No Symptoms Respiratory: Reports: No Symptoms Cardiovascular: Reports: No Symptoms GI/Abdominal: Reports: No Symptoms : Reports: No Symptoms Musculoskeletal: Reports: No Symptoms Skin: Reports: No Symptoms Neurological: Reports: Numbness (both feet), Difficulty Walking, Other (pain shoots down L leg with movement of any kind) Psychiatric: Reports: No Symptoms ED EXAM,LOWER BACK PAIN/INJURY - Physical Exam Exam: See Below Exam Limited By: No Limitations General Appearance: Alert, WD/WN, Mild Distress Eye Exam: Bilateral Eye: Normal Inspection Ears: Normal External Exam, Normal Canal, Hearing Grossly Normal Nose: Normal Inspection, No Blood Throat/Mouth: Normal Inspection, Normal Lips, Normal Oropharynx, Normal Voice, No Airway Compromise Head: Atraumatic, Normocephalic Neck: Normal Inspection Respiratory/Chest: No Respiratory Distress, Lungs Clear, Normal Breath Sounds Cardiovascular: Regular Rate, Rhythm GI/Abdominal: Soft, Non-Tender Back Exam: Normal Inspection. No: CVA Tenderness (R), CVA Tenderness (L) Extremities: Normal Inspection, Normal Range of Motion, Non-Tender, No Pedal Edema Neurological: Alert, Normal Mood/Affect, CN II-XII Intact, Oriented x 3 Psychiatric: Normal Affect, Tearful Skin Exam: Warm, Dry, Intact, Normal Color, No Rash Course - Vital Signs Text/Narrative:: Message left with Tammy Singleton at the [facility], [place] @ 0909 Last Recorded V/S: Last Vital Signs Temp 36.7 C 12/17/20 08:39 Pulse 115 H 12/17/20 08:39 Resp 20 12/17/20 08:39 BP 126/82 12/17/20 08:39 Pulse Ox 98 12/17/20 08:39 - Re-Assessments/Exams Free Text/Narrative Re-Assessment/Exam: 12/17/20 09:32 While waiting for a call back from [facility] other family member's arrived and were upset that we "weren't doing anything". I updated them on that fact that I had made a call to her provider and was waiting for a return call. She is already on strong opiodes and is intolerable of both gabapentin and Lyrica. I felt she needed an intervention to afford her relief. I warned her that most hospitals were full and that it might take some time to work something out. They decided they want to be discharged rather than wait in the ER. Departure - Departure Time of Disposition: 09:36 Disposition: Home, Self-Care 01 Condition: Fair Clinical Impression: Back pain with left-sided radiculopathy - Discharge Information *PRESCRIPTION DRUG MONITORING PROGRAM REVIEWED*: Not Applicable *COPY OF PRESCRIPTION DRUG MONITORING REPORT IN PATIENT JALYN: Not Applicable Referrals: Bessy Izquierdo DO [Primary Care Provider] - Forms: ED Department Discharge Additional Instructions: Stay in close communication with Tammy Singleton to work out a plan for definitive treatment of your herniated disc. Sepsis Event Note (ED) - Evaluation Sepsis Screening Result: No Definite Risk - Focused Exam Vital Signs: Vital Signs Temp Pulse Resp BP Pulse Ox 12/17/20 08:39 36.7 C 115 H 20 126/82 98
== END 2020-12-17 09:53 | disposition home or self-care (01) ==
LOC: JP.ED 08:08
DX: M54.16 Radiculopathy, lumbar region (principal); J45.909 Unspecified asthma, uncomplicated; E03.9 Hypothyroidism, unspecified; Z72.0 Tobacco use; Z88.8 Allergy status to other drugs, medicaments and biological substances; Z88.5 Allergy status to narcotic agent; Z88.6 Allergy status to analgesic agent; Z79.899 Other long term (current) drug therapy
CPT/HCPCS: 99283

== ENCOUNTER 2020-12-22 05:04 | Emergency (ER) | payer MEDICAID ==
[2020-12-22] MEDS ORDERED: LORazepam 2 MG/ML SDV IVPUSH ONE ×2 (06:19→10:27)
--- NOTE | 2020-12-22 06:28 | EDM.PDOC ---
<OfficerBenedict - Last Filed: 12/22/20 06:29> ED HPI GENERAL MEDICAL PROBLEM - General Chief Complaint: Back Pain or Injury Stated Complaint: MEDICAL VIA [facility] Time Seen by Provider: 12/22/20 05:33 Source of Information: Reports: Patient, Family, Old Records, RN Notes Reviewed History Limitations: Reports: Physical Impairment - History of Present Illness INITIAL COMMENTS - FREE TEXT/NARRATIVE: 50-year-old female presents emergency department day with complaint of increasing back pain, she was evaluated in the emergency department on 17 December same complaint increasing back pain she does follow with the pain clinic at in [place]. She does have a virtual appointment tomorrow. She states over the last 2 weeks her pain has increased last MRI was in September 2020 showed minimal encroachment of the L2 left exiting nerve. She denies any trauma any falls she states the pain suddenly increased to the point where she can no longer function or take care of herself at home. 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 She arrived by EMS was given 150 mcg of fentanyl states her control pain is adequate at this time. She states the pain clinic did provide a steroid Dosepak which has provided the pain however today's day of that medication Treatments PAGINATOR: Reports: IV/IO denies pain Pain Score (Numeric/FACES): 0 - Related Data Allergies Allergy/AdvReac Type Severity Reaction Status Date / Time atorvastatin Allergy Other Verified 12/22/20 05:10 gabapentin Allergy Other Verified 12/22/20 05:10 pregabalin [From Lyrica] Allergy Swelling Verified 12/22/20 05:10 tramadol Allergy Other Verified 12/22/20 05:10 varenicline Allergy Other Verified 12/22/20 05:10 codeine AdvReac Nausea and Verified 12/22/20 05:10 Vomiting Home Meds: Home Meds Albuterol Sulfate [Albuterol Sulfate Hfa] 2 puff INH Q4H PRN 11/25/18 [History] Fluticasone Propionate [Flonase] 1 spray NASBOTH DAILY 11/25/18 [History] Levothyroxine 150 mcg PO DAILY 11/25/18 [History] [place]-3/DHA/Epa/Fish Oil [[place] 3 500 Softgel] 1 tab PO DAILY 11/25/18 [History] Rizatriptan [Maxalt HANSARD REPORTER] 5 mg PO ASDIRECTED 11/25/18 [History] oxyCODONE [Oxycodone HCl] 10 mg PO .6TIMES PER DAY 11/25/18 [History] Cbd Vape 1 inh INH TID PRN 01/21/19 [History] Lidocaine/Prilocaine [EMLA Crm] 1 applic TOP ASDIRECTED PRN 02/17/19 [History] Ondansetron [Zofran] 8 mg PO Q8H PRN 06/26/19 [History] Ranitidine HCl [Ranitidine] 150 mg PO BID 06/26/19 [History] Morphine Sulfate [Morphine Sulfate ER] 15 mg PO BID 12/22/20 [History] Past Medical History HEENT History: Reports: Allergic Rhinitis, Glaucoma, Impaired Vision Other HEENT History: wears glasses Respiratory History: Reports: Asthma Gastrointestinal History: Reports: Celiac Disease Genitourinary History: Reports: Other (See Below) Other Genitourinary History: prolapse bladder [employer]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: Musculoskeletal History: Reports: Arthritis, Back Pain, Chronic, Fibromyalgia Neurological History: Reports: Migraines, Neuropathy, Peripheral Psychiatric History: Reports: Anxiety, Depression, Panic Attack Endocrine/Metabolic History: Reports: Hypothyroidism Oncologic (Cancer) History: Reports: Breast Dermatologic History: Reports: Psoriasis - Infectious Disease History Infectious Disease History: Reports: Chicken Pox - Past Surgical History HEENT Surgical History: Reports: Oral Surgery Respiratory Surgical History: Reports: None GI Surgical History: Reports: EGD Female Surgical History: Reports: Breast Biopsy, Other (See Below) Other Female Surgeries/Procedures: right breast lumpectomy Endocrine Surgical History: Reports: None Neurological Surgical History: Reports: Sacral Spine Musculoskeletal Surgical History: Reports: None Oncologic Surgical History: Reports: Lumpectomy Dermatological Surgical History: Reports: None Social & Family History - Family History Family Medical History: No Pertinent Family History Respiratory: Reports: Other (See Below) Other Respiratory Family Hisory: lung polyps? Musculoskeletal: Reports: Back pain, Chronic Neurological: Reports: CVA, Migraines Psychiatric: Reports: Anxiety, OCD - Tobacco Use Tobacco Use Status *Q: Current Every Day Tobacco User Years of Tobacco use: 30 Packs/Tins Daily: 2 - Caffeine Use Caffeine Use: Reports: Coffee Caffeine Use Comment: 10 cups, monster x1 - Recreational Drug Use Recreational Drug Use: Yes Drug Use in Last 12 Months: No Recreational Drug Type: Reports: Marijuana/Hashish Recreational Drug Use Frequency: Daily ED ROS GENERAL - Review of Systems Review Of Systems: See Below Constitutional: Reports: No Symptoms HEENT: Reports: No Symptoms Respiratory: Reports: No Symptoms Cardiovascular: Reports: No Symptoms GI/Abdominal: Reports: No Symptoms. Denies: Stool Incontinence : Denies: Incontinence Musculoskeletal: Reports: Back Pain Neurological: Reports: Numbness, Tingling Psychiatric: Reports: Agitation, Anxiety ED EXAM,LOWER BACK PAIN/INJURY - Physical Exam Exam: See Below Exam Limited By: Physical Impairment General Appearance: Alert, Anxious, Moderate Distress Respiratory/Chest: No Respiratory Distress, Lungs Clear, Normal Breath Sounds, No Accessory Muscle Use, Chest Non-Tender Cardiovascular: Regular Rate, Rhythm, No Murmur GI/Abdominal: Soft, Non-Tender Back Exam: Normal Inspection, Full Range of Motion. No: CVA Tenderness (R), CVA Tenderness (L), Muscle Spasm, Paraspinal Tenderness, Vertebral Tenderness Extremities: Normal Inspection, Normal Range of Motion Departure - Departure Disposition: Home, Self-Care 01 Clinical Impression: Disc disease, degenerative, lumbar or lumbosacral, History of breast cancer - Discharge Information Referrals: Bessy Izquierdo DO [Physician] - 12/24/20 9:40 am (Please arrive 15 minutes early to register for your appointment.) Forms: ED Department Discharge Care Plan Goals: moist warm packs alternating with ice, cont the Morpine and oxycodone for her pain, keep apt for neurosurgery consult, predisone 10 mg daily for the next week. A home care referral was made to [facility]. [facility] will contact you the week of Dec 27 to schedule you home visit. Their phone number is [phone]. A referral was made to Neurosurgery at [facility]. [facility] will contact you with date and time of your appointment. Their phone number is [phone] for neurosurgery department. Sepsis Event Note (ED) - Evaluation Sepsis Screening Result: No Definite Risk <Edelmira Degroot - Last Filed: 12/27/20 19:57> Course - Vital Signs Last Recorded V/S: Last Vital Signs Temp 36.9 C 12/22/20 05:15 Pulse 92 12/22/20 11:42 Resp 16 12/22/20 11:42 BP 107/79 12/22/20 11:42 Pulse Ox 96 12/22/20 11:42 - Orders/Labs/Meds Labs: Laboratory Tests 12/22/20 Range/Units 06:05 Urine Color Yellow (YELLOW) Urine Appearance Slightly cloudy A (CLEAR) Urine pH 7.0 (5.0-8.0) Ur Specific [place] 1.010 (1.008-1.030) Urine Protein Negative (NEGATIVE) mg/dL Urine Glucose (UA) Negative (NEGATIVE) mg/dL Urine Ketones Trace H (NEGATIVE) mg/dL Urine Occult Blood Trace-lysed H (NEGATIVE) Urine Nitrite Negative (NEGATIVE) Urine Bilirubin Negative (NEGATIVE) Urine Urobilinogen 0.2 (0.2-1.0) EU/dL Ur Leukocyte Esterase Negative (NEGATIVE) Urine RBC 0-5 (0-5) Urine WBC Not seen (0-5) Ur Epithelial Cells Rare Amorphous Sediment Not seen Urine Bacteria Rare Urine Mucus Not seen Meds: Medications Discontinued Medications Generic Name Dose Route Start Last Admin Trade Name Freq PRN Reason Stop Dose Admin Hydromorphone HCl 1 mg 12/22/20 12:45 12/22/20 12:56 Hydromorphone 1 Mg/Ml Syringe IVPUSH 12/22/20 12:46 1 mg ONETIME ONE Administration Lorazepam 1 mg 12/22/20 06:19 12/22/20 07:58 Lorazepam 2 Mg/Ml Sdv IVPUSH 12/22/20 06:20 1 mg ONETIME ONE Administration Lorazepam 0.5 mg 12/22/20 10:27 12/22/20 10:38 Lorazepam 2 Mg/Ml Sdv IVPUSH 12/22/20 10:28 0.5 mg ONETIME ONE Administration Nicotine Polacrilex 2 mg 12/22/20 13:16 12/22/20 13:55 Nicotine Polacrilex 2 Mg Gum BUCCAL 2 mg Q2H PRN Administration SMOKING CESSATION Oxycodone HCl 10 mg 12/22/20 09:54 12/22/20 10:37 Oxycodone 5 Mg Tab PO 12/22/20 09:55 10 mg ONETIME ONE Administration - Re-Assessments/Exams Free Text/Narrative Re-Assessment/Exam: 12/22/20 12:47 Pt arrived with severe pain Her Mri showed some new disc changes at L4L5. She has not seen ortho or neurosurgery for about 5 years, She is on large doses of narcotics. 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 She feels that she is not able to funtion the other days and her brother is helping to get a post closing specialist for the other days. She pretty much sits in her bed at home. 12/22/20 13:38 discharge planning did see the pt and will try to sit up homecare but that will not be instant. She will have a referal to neurosurgery to consult for a plan for the care of her back. It was discussed at length with her how tight both hosp and [facility] beds are. Pt did have steriods and she felt like it helped some. She states her back as been so much worse in general since she had the breast ca and all of the tretrments. 12/22/20 13:53 Departure - Departure Time of Disposition: 13:52 Condition: Fair
[2020-12-22] MEDS ORDERED: oxyCODONE 5 MG Tab PO ONE (09:54)
--- NOTE | 2020-12-22 12:04 | CRLMR ---
For Patients: As a result of the Century Cures Act, medical imaging exams and procedure reports are released immediately into your electronic medical record. You may view this report before your referring provider. If you have questions, please contact your health care provider. INDICATION: Acute low back pain. Left-sided radiculopathy. TECHNIQUE : Lumbar spine MRI without contrast. The following sequences were obtained: Sagittal T1, T2 weighted and STIR sequences. Axial T1 and T2 weighted sequences. COMPARISON: Lumbar spine MRI from 09/08/2020. FINDINGS : Five lumbar type vertebral bodies, with the last fully formed disc space designated as L5-S1. Normal lumbar lordotic curve. No compression fracture or aggressive marrow signal abnormality. Lower cord/conus signal is normal. The conus terminates at a normal location. No intradural lesion. No retroperitoneal or paraspinous soft tissue abnormalities. Discs/Endplates: Normal disc height and hydration signal at T11-12, T12-L1, L1-2 and L5-S1. At L2-3, mild disc height loss and disc desiccation. At L3-4 and L4-5, moderate disc height loss and disc desiccation. At L4-5, mild type 1 Modic changes to the left of midline. Facets: Low-grade facet arthrosis at the mid to lower lumbar levels. Findings at individual levels as follows: T11-12: No spinal canal or neural foraminal stenosis. T12-L1: No spinal canal or neural foraminal stenosis. L1-2: No spinal canal or neural foraminal stenosis. L2-3: Mild bilobed disc bulge with a superimposed left foraminal/extraforaminal protrusion component. Minimal contact of the exiting left L2 nerve root. No spinal canal or neural foraminal stenosis. L3-4: Moderate disc bulges overlying osteophytic ridging. Bilateral low-grade facet arthrosis. No spinal canal or neural foraminal stenosis. L4-5: Trace anterolisthesis. Mild disc bulge with superimposed left central to foraminal protrusion component. Mild to moderate spinal canal stenosis. Mild left neural foraminal stenosis. No right neural foraminal stenosis. Left greater than right subarticular recess stenosis with mild impingement of the traversing left L5 nerve root. Contact of the exiting left L4 nerve root. L5-S1: No spinal canal or neural foraminal stenosis. Imaged SI joints: Within normal limits. Imaged sacrum: Within normal limits. IMPRESSION: 1. At L4-5, a new left central to foraminal protrusion contributes to subarticular recess stenosis with mild impingement of the traversing left L5 nerve root. There is also mild left neural foraminal stenosis with contact of the exiting left L4 nerve root. 2. At L2-3, a left foraminal/extraforaminal protrusion minimally contacts the left L2 nerve root. Stable. 3. Minimal spondylotic changes at the remaining levels. Dictated by Guillermo Acuña MD @ 12/22/2020 12:04:12 PM (Electronically Signed)
[2020-12-22] MEDS ORDERED: HYDROmorphone 1 MG/ML Syringe IVPUSH ONE (12:45)
[2020-12-22] MEDS ORDERED: Nicotine Polacrilex 2 MG Gum BUCCAL PRN (13:16)
== END 2020-12-22 15:19 | disposition home or self-care (01) ==
LOC: JP.ED 05:04
DX: M51.36 Other intervertebral disc degeneration, lumbar region (principal); E03.9 Hypothyroidism, unspecified; Z88.8 Allergy status to other drugs, medicaments and biological substances; Z88.5 Allergy status to narcotic agent; Z72.0 Tobacco use; Z79.899 Other long term (current) drug therapy; Z85.3 Personal history of malignant neoplasm of breast
CPT/HCPCS: 72148; 81001; 96374; 96375; 96376; 99284; A9270; J1170; J2060

== ENCOUNTER 2021-05-18 19:27 | Emergency (ER) | payer MEDICAID | END 2021-05-18 20:51 | disposition home or self-care (01) | LOC: JP.ED 19:27 | DX: L76.22 Postprocedural hemorrhage of skin and subcutaneous tissue following other procedure (principal); E03.9 Hypothyroidism, unspecified; J45.909 Unspecified asthma, uncomplicated; Z92.241 Personal history of systemic steroid therapy; Z79.899 Other long term (current) drug therapy | CPT/HCPCS: 99281; 99283 ==